=== PATIENT | female | born 1995 | race American Indian/Alaskan Native ===

== ENCOUNTER 2016-12-07 04:52 | Emergency (ER) | payer MEDICAID, OTHER ==
[2016-12-07 04:59] VITALS: BP 125/86
[2016-12-07] MEDS ORDERED: Famotidine 20 MG Tab PO ONE (05:15)
[2016-12-07] MEDS ORDERED: diphenhydrAMINE 25 MG Tab PO ONE (05:15)
--- NOTE | 2016-12-07 05:21 | EDM.PDOC ---
ED HPI Allergic Reaction - General Chief Complaint: Allergic Reaction Stated Complaint: BREAKING OUT IN HIVES Time Seen by Provider: 12/07/16 05:00 Source of Information: Reports: Patient History Limitations: Reports: No limitations - History of Present Illness INITIAL COMMENTS - FREE TEXT/NARRATIVE: rash since yesterday, started on arms, itchy progressing from fine to large hive area on inner thigh. Present on abdomen and back Now recently starting into hair. No changes in diet , soaps or lotions. No other sympotms. Has only tried hydrocortisone. remote change in laundry soap but has worn clothing prior with out response. Location, Skin: Reports: face, chest, abdomen, back, upper extremity, right, upper extremity, left, lower extremity, right, lower extremity, left Characteristics: Reports: maculopapular, fine, urticarial - Related Data Allergies/ADRs: Allergies Allergy/AdvReac Type Severity Reaction Status Date / Time No Known Allergies Allergy Verified 12/07/16 04:59 Home Meds: Home Meds . 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/Surgical History Social & Family History - Tobacco Use Smoking Status *Q: Never Smoker Second Hand Smoke Exposure: No - Alcohol Use Days Per Week of Alcohol Use: 0 - Recreational Drug Use Recreational Drug Use: No - Living Situation & Occupation Living situation: Reports: single, with family Occupation: student ED ROS ALLERGIC REACTION - Review of Systems Review Of Systems: ROS reveals no pertinent complaints other than HPI. ED EXAM GENERAL NO PERIP PULSE - Physical Exam Exam: See Below Exam Limited By: No limitations General Appearance: alert, no apparent distress Eye Exam: bilateral eye: EOMI Ears: normal external exam Nose: normal inspection Throat/Mouth: Normal inspection Head: atraumatic, normocephalic Neck: normal inspection Respiratory/Chest: no respiratory distress, lungs clear, normal breath sounds GI/Abdominal: normal bowel sounds, soft Extremities: normal inspection Neurological: alert, oriented, normal cognition Skin Exam: Warm, Dry, Intact, Rash (fine loki upper extremities, raised abdomen , neck and back confluent, mocular hives lower extremities. ) Lymphatic: no adenopathy Course - Vital Signs Last Recorded V/S: Last Vital Signs Temp 97.2 F 12/07/16 04:54 Pulse 80 12/07/16 04:54 Resp 18 12/07/16 04:54 BP 125/86 12/07/16 04:54 Pulse Ox 99 12/07/16 04:54 - Orders/Labs/Meds Meds: Medications Discontinued Medications Generic Name Dose Route Start Last Admin Trade Name Rocío PRN Reason Stop Dose Admin Diphenhydramine HCl 25 mg 12/07/16 05:15 12/07/16 05:22 Benadryl PO 12/07/16 05:16 25 mg ONETIME ONE Administration Famotidine 20 mg 12/07/16 05:15 12/07/16 05:22 Pepcid PO 12/07/16 05:16 20 mg ONETIME ONE Administration Departure - Departure Time of Disposition: 05:17 Disposition: Home, Self-Care 01 Condition: good Clinical Impression: Dermatitis Instructions: Contact Dermatitis, [id number] Forms: ED Department Discharge Additional Instructions: benadryl 25mg every 6 hours for 24 hours then as needed Pepcid 10mg twice daily for 2 days follow up urgently if any breathing or swallowing difficulty.
== END 2016-12-07 05:24 | disposition home or self-care (01) ==
LOC: DL.ED 04:52
DX: L30.9 Dermatitis, unspecified (principal)
CPT/HCPCS: 99283; A9270

== ENCOUNTER 2017-08-02 14:42 | Emergency (ER) | payer OTHER ==
[2017-08-02 15:33] VITALS: BP 117/66
--- NOTE | 2017-08-02 16:04 | EDM.PDOC ---
ED HPI GENERAL MEDICAL PROBLEM - General Chief Complaint: ENT Problem Stated Complaint: FEVER,CHILLS,SORE THROAT, [id number] Time Seen by Provider: 08/02/17 15:50 Source of Information: Reports: Patient History Limitations: Reports: No Limitations - History of Present Illness INITIAL COMMENTS - FREE TEXT/NARRATIVE: This 22 yo female patient reports to the ED for 2 issues for which she has been seen in the Clinic. The first issue is that the patient reports having pain in her vaginal area. The patient reports she has been checked for STD's, but they have not found anything. The second issue is soreness in her throat. The patient was seen in the clinic yesterday, tested negative for strep, but was not given anything for her throat. The patient reports she is here for a second opinion regarding her throat and vaginal pain. Onset: Gradual Duration: Constant Location: Reports: Neck, Pelvis Quality: Reports: Ache, Dull Severity: Moderate Improves with: Reports: None Worsens with: Reports: None Associated Symptoms: Reports: No Other Symptoms Throat Pain Score (Numeric/FACES): 4 - Related Data Allergies Allergy/AdvReac Type Severity Reaction Status Date / Time No Known Allergies Allergy Verified 08/02/17 15:30 Home Meds: Home Meds . 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 ED EXAM, GENERAL - Physical Exam Exam: See Below Exam Limited By: No Limitations General Appearance: Alert, WD/WN, Mild Distress Eye Exam: Bilateral Eye: EOMI, Normal Inspection, PERRL Ears: Normal External Exam, Normal Canal, Hearing Grossly Normal, Normal TMs Nose: Normal Inspection, Normal Mucosa, No Blood Throat/Mouth: Normal Inspection, Normal Lips, Normal Teeth, Normal Gums, Normal Voice, No Airway Compromise, Other (tonsils are erythematous) Head: Atraumatic, Normocephalic Neck: Normal Inspection, Supple, Non-Tender, Full Range of Motion Respiratory/Chest: No Respiratory Distress, Lungs Clear, Normal Breath Sounds, No Accessory Muscle Use, Chest Non-Tender Cardiovascular: Normal Peripheral Pulses, Regular Rate, Rhythm, No Edema, No Gallop, No JVD, No Murmur, No Rub GI/Abdominal: Normal Bowel Sounds, Soft, Non-Tender, No Organomegaly, No Distention, No Abnormal Bruit, No Mass (Female) Exam: Deferred Rectal (Female) Exam: Deferred Back Exam: Normal Inspection, Full Range of Motion, NT Extremities: Normal Inspection, Normal Range of Motion, Non-Tender, Normal Capillary Refill, No Pedal Edema Neurological: Alert, Oriented, CN II-XII Intact, Normal Cognition, Normal Gait, Normal Reflexes, No Motor/Sensory Deficits Psychiatric: Normal Affect, Normal Mood Skin Exam: Warm, Dry, Intact, Normal Color, No Rash Lymphatic: No Adenopathy Course - Vital Signs Last Recorded V/S: Last Vital Signs Temp 36.9 C 08/02/17 15:32 Pulse 80 08/02/17 15:32 Resp 18 08/02/17 15:32 BP 117/66 08/02/17 15:32 Pulse Ox 100 08/02/17 15:32 - Orders/Labs/Meds Labs: Laboratory Tests 08/02/17 08/02/17 Range/Units 15:45 15:45 Urine Color Yellow (YELLOW) Urine Appearance Turbid (CLEAR) Urine pH 7.5 (5.0-9.0) Ur Specific [place] 1.020 (1.005-1.030) Urine Protein Negative (NEGATIVE) Urine Glucose (UA) Negative (NEGATIVE) Urine Ketones Negative (NEGATIVE) Urine Occult Blood Negative (NEGATIVE) Urine Nitrite Negative (NEGATIVE) Urine Bilirubin Negative (NEGATIVE) Urine Urobilinogen 0.2 (0.2-1.0) mg/dL Ur Leukocyte Esterase Negative (NEGATIVE) Urine RBC 0-5 /HPF Urine WBC 0-5 (0-5/HPF) /HPF Ur Epithelial Cells Few /HPF Amorphous Sediment Many H (0/HPF) /HPF Urine Bacteria Rare (0-FEW/HPF) /HPF Urine Mucus Few H /LPF Urine HCG, Qual Negative Departure - Departure Time of Disposition: 16:32 Disposition: Home, Self-Care 01 Condition: Fair Clinical Impression: Vaginal pain, Sore throat (viral) - Discharge Information Instructions: Pelvic Pain, Female, [id number] Forms: ED Department Discharge Care Plan Goals: The patient was advised of the examination and lab results during the visit. The patient was encouraged to follow-up with her primary care facility for continued evaluation and management. If the patient has any additional symptoms or concerns, the patient should follow-up with her primary care facility or return to the emergency department.
== END 2017-08-02 16:45 | disposition home or self-care (01) ==
LOC: DL.ED 14:42
DX: J02.8 Acute pharyngitis due to other specified organisms (principal); B97.89 Other viral agents as the cause of diseases classified elsewhere; R10.2 Pelvic and perineal pain
CPT/HCPCS: 81001; 81025; 99283

== ENCOUNTER 2018-03-10 09:18 | Emergency (ER) | payer OTHER ==
[2018-03-10 09:43] VITALS: BP 112/75
[2018-03-10] MEDS ORDERED: Sodium Chloride 0.9% 1,000 ML IV ONE (09:57)
[2018-03-10 10:03] LABS: CHLORIDE,CL 105 mmol/L (101-111); SODIUM,NA 137 mmol/L (135-145)
[2018-03-10] MEDS ORDERED: Acetaminophen 325 MG Tab PO ONE (10:06)
--- NOTE | 2018-03-10 10:06 | EDM.PDOC ---
ED HPI GENERAL MEDICAL PROBLEM - General Chief Complaint: General Stated Complaint: TROUBLE TALKING, VISION PROBLEMS Time Seen by Provider: 03/10/18 09:45 Source of Information: Reports: Patient History Limitations: Reports: No Limitations - History of Present Illness INITIAL COMMENTS - FREE TEXT/NARRATIVE: This 23 yo female patient reports to the ED due to right arm numbness and vision difficulties. The patient reports that her numbness has resolved by the time of the evaluation, but the patient reports that she is starting to get a headache at this time. The patient reports that she has a history of migraine headaches. The patient reports that she may be a little dehydrated at this time as she has not been drinking her normal amounts of fluid. The patient reports that she has not taken anything for her headache today, but normally takes Tylenol. 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 Her last visit with Dr. Purcell was last week. Onset: Today Onset Date: 03/10/18 Onset Time: 09:00 Duration: Improving Location: Reports: Head (headache), Upper Extremity, Right (numbness), Other ( vision changes) Quality: Reports: Other Severity: Moderate Improves with: Reports: Other Worsens with: Reports: None Associated Symptoms: Reports: No Other Symptoms - Related Data Allergies Allergy/AdvReac Type Severity Reaction Status Date / Time No Known Allergies Allergy Verified 03/10/18 09:31 Home Meds: Home Meds Ferrous Sulfate 325 mg PO DAILY #30 tablet 01/15/18 [Rx] Vit W-Ca,Fe,FA(<1 mg) [ Vitamins] 1 tab PO DAILY 01/15/18 [ History] Past Medical History - Past Health History Medical/Surgical History: Denies Medical/Surgical History HEENT History: Reports: Other (See Below) Other HEENT History: RAD Cardiovascular History: Reports: None Respiratory History: Reports: Other (See Below) Other Respiratory History: RAD Gastrointestinal History: Reports: None Genitourinary History: Reports: None SIGNAL INSPECTOR History: Reports: Other OB/BYN History: 28 weeks; no known complications this due date Musculoskeletal History: Reports: None Neurological History: Reports: Migraines Other Neuro History: according to records on file was seen in 2013 in ER for similar symptoms Psychiatric History: Reports: Anxiety Endocrine/Metabolic History: Reports: None Hematologic History: Reports: None Immunologic History: Reports: None Oncologic (Cancer) History: Reports: None Dermatologic History: Reports: None - Infectious Disease History Infectious Disease History: Reports: None - Past Surgical History Head Surgeries/Procedures: Reports: None HEENT Surgical History: Reports: None Oncologic Surgical History: Reports: None Social & Family History - Family History Family Medical History: Noncontributory - Tobacco Use Smoking Status *Q: Never Smoker - Caffeine Use Caffeine Use: Reports: Soda - Recreational Drug Use Recreational Drug Use: No - Living Situation & Occupation Living situation: Reports: Single, with Family Occupation: Student ED ROS GENERAL - Review of Systems Review Of Systems: ROS reveals no pertinent complaints other than HPI. ED EXAM, GENERAL - Physical Exam Exam: See Below Exam Limited By: No Limitations General Appearance: Alert, WD/WN, Mild Distress Eye Exam: Bilateral Eye: EOMI, Normal Inspection, PERRL Ears: Normal External Exam, Normal Canal, Hearing Grossly Normal, Normal TMs Nose: Normal Inspection, Normal Mucosa, No Blood Throat/Mouth: Normal Inspection, Normal Lips, Normal Teeth, Normal Gums, Normal Oropharynx, Normal Voice, No Airway Compromise Head: Atraumatic, Normocephalic Neck: Normal Inspection, Supple, Non-Tender, Full Range of Motion Respiratory/Chest: No Respiratory Distress, Lungs Clear, Normal Breath Sounds, No Accessory Muscle Use, Chest Non-Tender Cardiovascular: Normal Peripheral Pulses, Regular Rate, Rhythm, No Edema, No Gallop, No JVD, No Murmur, No Rub GI/Abdominal: Normal Bowel Sounds, Soft, Non-Tender, No Organomegaly, No Distention, No Abnormal Bruit, No Mass (Female) Exam: Deferred Rectal (Female) Exam: Deferred Back Exam: Normal Inspection, Full Range of Motion, NT Extremities: Normal Inspection, Normal Range of Motion, Non-Tender, Normal Capillary Refill, No Pedal Edema Neurological: Alert, Oriented, CN II-XII Intact, Normal Cognition, Normal Gait, Normal Reflexes, No Motor/Sensory Deficits Psychiatric: Normal Affect, Normal Mood Skin Exam: Warm, Dry, Intact, Normal Color, No Rash Lymphatic: No Adenopathy Course - Vital Signs Last Recorded V/S: Last Vital Signs Temp 36.5 C 03/10/18 09:30 Pulse 100 03/10/18 09:30 Resp 18 03/10/18 09:30 BP 112/75 03/10/18 09:30 Pulse Ox 100 03/10/18 09:30 - Orders/Labs/Meds Orders: Active Orders 24 hr Category Date Time Status EKG 12 Lead [EKG Documentation Completion] [RC] STAT Care 03/10/18 09:32 Active Sodium Chloride 0.9% [Normal Saline] 1,000 ml Med 03/10/18 09:57 Active IV .BOLUS Medication Orders Sodium Chloride (Normal Saline) 1,000 mls @ 999 mls/hr IV .BOLUS ONE Stop: 03/10/18 10:57 Last Admin: 03/10/18 10:10 Dose: 999 mls/hr Labs: Laboratory Tests 03/10/18 03/10/18 Range/Units 09:35 09:35 WBC 7.4 (5.0-10.0) 10^3/uL RBC 3.82 L (4.2-5.4) 10^6/uL Hgb 11.1 L D (12.0-16.0) g/dL Hct 34.0 L (37.0-47.0) % MCV 89.0 (80-100) fL MCH 29.1 (27.0-34.0) pg MCHC 32.6 L (33.0-35.0) g/dL Plt Count 255 (150-450) 10^3/uL Neut % (Auto) 74.6 (42.2-75.2) % Lymph % (Auto) 14.4 L (20.5-50.1) % [place] % (Auto) 8.6 H (2-8) % Eos % (Auto) 2.3 (1.0-3.0) % Baso % (Auto) 0.1 (0.0-1.0) % Sodium 137 (135-145) mmol/L Potassium 3.3 L (3.6-5.0) mmol/L Chloride 105 (101-111) mmol/L Carbon Dioxide 23.0 (21.0-31.0) mmol/L Anion Gap 12.3 BUN 8 (7-18) mg/dL Creatinine 0.6 (0.6-1.3) mg/dL Est Cr Clr Drug Dosing 116.32 mL/min Estimated GFR (MDRD) > 60 BUN/Creatinine Ratio 13.33 Glucose 85 (74-105) mg/dL Calcium 8.9 (8.4-10.2) mg/dl Total Bilirubin 0.6 (0.2-1.0) mg/dL AST 23 (10-42) IU/L ALT 18 (10-60) IU/L Alkaline Phosphatase 84 (42-121) IU/L Troponin I < 0.02 (0.00-0.02) ng/ml Total Protein 6.9 (6.7-8.2) g/dl Albumin 3.2 (3.2-5.5) g/dl Globulin 3.7 Albumin/Globulin Ratio 0.86 Meds: Medications Generic Name Dose Route Start Last Admin Trade Name Freq PRN Reason Stop Dose Admin Sodium Chloride 1,000 mls @ 999 mls/hr 03/10/18 09:57 03/10/18 10:10 Normal Saline IV 03/10/18 10:57 999 mls/hr .BOLUS ONE Administration Discontinued Medications Generic Name Dose Route Start Last Admin Trade Name Freq PRN Reason Stop Dose Admin Acetaminophen 650 mg 03/10/18 10:06 03/10/18 10:10 Tylenol PO 03/10/18 10:07 650 mg NOW ONE Administration Departure - Departure Time of Disposition: 10:45 Disposition: Home, Self-Care 01 Condition: Fair Clinical Impression: Dehydration during Headache Qualifiers: Headache type: tension-type Headache chronicity pattern: acute headache Intractability: not intractable Qualified Code(s): G44.209 - Tension-type headache, unspecified, not intractable Qualifiers: Weeks of gestation: 26 weeks Qualified Code(s): Z3A.26 - 26 weeks gestation of - Discharge Information Instructions: Third Trimester of , [id number] Forms: ED Department Discharge Care Plan Goals: The patient was advised of the examination and lab results during the visit. The patient was given a liter of IV fluids and an oral dose of Tylenol while in the ED. If the patient has any additional symptoms or concerns, the patient should follow-up with her primary care facility or with her SIGNAL INSPECTOR. - My Orders Last 24 Hours: My Active Orders 03/10/18 09:32 EKG 12 Lead [EKG Documentation Completion] [RC] STAT 03/10/18 09:57 Sodium Chloride 0.9% [Normal Saline] 1,000 ml IV .BOLUS - Assessment/Plan Last 24 Hours: My Active Orders 03/10/18 09:32 EKG 12 Lead [EKG Documentation Completion] [RC] STAT 03/10/18 09:57 Sodium Chloride 0.9% [Normal Saline] 1,000 ml IV .BOLUS
--- NOTE | 2018-03-14 12:49 | EKG ---
03/10/2018 - SHRUTHI JENKINS - FINDINGS: This 12-lead EKG shows a normal sinus rhythm with a ventricular rate of 95. Normal axis and intervals. No acute ST-segment or T-wave changes. [facility] /[id number]
== END 2018-03-10 11:07 | disposition home or self-care (01) ==
LOC: DL.ED 09:18
DX: O99.282 Endocrine, nutritional and metabolic diseases complicating pregnancy, second trimester (principal); E86.0 Dehydration; O99.352 Diseases of the nervous system complicating pregnancy, second trimester; G44.209 Tension-type headache, unspecified, not intractable; Z3A.28 28 weeks gestation of pregnancy
CPT/HCPCS: 36415; 80053; 84484; 85025; 93005; 96360; 99284; A9270; J7030

== ENCOUNTER 2018-05-12 06:09 | Inpatient (IN) | payer MEDICAID, OTHER ==
[~2018-05-12 06:09] MED LIST: Acetaminophen 325 MG Tab PO PRN; Acetaminophen/oxyCODONE 325-5 MG Tab PO PRN; Carboprost Tromethamine 250 MCG/1 ML Amp IM ONE; Citric Acid/Sodium Citrate Solution 30 ML Cup PO ONE; Ketorolac 30 MG/ML SDV IVPUSH SCH; Methylergonovine 0.2 MG/1 ML Amp IM PRN; Misoprostol 400 MCG (4 X 100 MCG TAB) RECTAL PRN; Naloxone 2 MG/2 ML Syringe IVPUSH PRN; Ondansetron 4 MG/2 ML SDV IV PRN; Oxytocin/Normal Saline 30 UNIT/500 ML BAG IV SCH; Tranexamic Acid 1,000 MG in Sodium Chloride 0.9% 100 ML IV PRN; ceFAZolin 2 GM in Premix Bag 1 BAG IV ONE; diphenhydrAMINE 50 MG/ML SDV IVPUSH PRN; ePHEDrine 50 MG/ML SDV IVPUSH PRN
[2018-05-12] MEDS: Lactated Ringers 1,000 ML IV SCH ×4 (06:30→22:45)
[2018-05-12] MEDS ORDERED: Oxytocin/Normal Saline 60 UNIT/1,000 ML BAG ONE (06:56)
[2018-05-12] MEDS ORDERED: Citric Acid/Sodium Citrate Solution 30 ML Cup ONE (07:34)
[2018-05-12] MEDS ORDERED: Promethazine 25 MG/ML SDV IM ONE (10:32)
[2018-05-12] MEDS ORDERED: Ketorolac 30 MG/ML SDV IVPUSH ONE (10:47)
[2018-05-12] MEDS ORDERED: Morphine PF 1 MG/ML Amp ITHECAL ONE (10:47)
[2018-05-12] MEDS ORDERED: Bupivacaine 0.75%/D5W 2 ML Amp INJECT ONE (10:47)
[2018-05-12] MEDS ORDERED: Oxytocin/Normal Saline 30 UNIT/500 ML BAG IV ONE (11:28)
--- NOTE | 2018-05-12 11:28 | OR ---
DATE: 05/12/2018 PREOPERATIVE DIAGNOSES: 1. Intrauterine at 37 and 1/7 weeks, confirmed with 6 and 3/7-week ultrasound. 2. Intrahepatic cholestasis of . 3. Previous section x1, requests repeat low transverse section. 4. Anemia of with hemoglobin of 10.5 upon admission. 5. Group B Streptococcus negative. 6. Bacterial vaginosis, treated earlier in the . 7. History of reactive airway disease. Rare albuterol use in the distant past. 8. G2, P1-0-0-1. POSTOPERATIVE DIAGNOSES: 1. Intrauterine at 37 and 1/7 weeks, confirmed with 6 and 3/7-week ultrasound, delivered. 2. Intrahepatic cholestasis of . 3. Previous section x1, requests repeat low transverse section. 4. Anemia of with hemoglobin of 10.5 upon admission. 5. Group B Streptococcus negative. 6. Bacterial vaginosis, treated earlier in the . 7. History of reactive airway disease. Rare albuterol use in the distant past. 8. G2, P1-0-0-1. PROCEDURES PERFORMED: Nonstress test, followed by repeat low transverse section. [employer] PRO[employer]S SUPERVISOR: Elizabeth Ballard MD. ANESTHESIA: Spinal. ESTIMATED BLOOD LOSS: 800 mL. INTRAVENOUS FLUIDS: 600 mL. URINE OUTPUT: 300 mL and clear yellow. START: 8:00 UTERINE INCISION: 8:02 DELIVERY: 8:03 STOP: 8:17 FINDINGS: Male. scores of 7 and 9. 7 pounds 13 ounces DESCRIPTION OF PROCEDURE IN DETAIL: After proper consent was obtained, the patient was brought to the operating room where spinal anesthetic was administered. A Hook was placed in preop under sterile conditions. Abdomen was prepped and draped in normal sterile fashion with the patient placed in supine position with a left lateral tilt. A skin incision was made over the lower abdomen in a transverse Pfannenstiel- type fashion over previous scar. This was carried down the fascia and scored in midline. Subcutaneous tissue was raked laterally by Esparza retractor. The fascial incision was extended in a transverse fashion using curved Hays's. Meredith clamps x2 were used to grasp the superior aspect of the fascia, and the rectus muscles were dissected from the fascia using a sharp and blunt technique. In a similar fashion, Meredith clamps x2 were used to grasp the inferior portion of the incision, and rectus pyramidalis muscles were dissected from the fascia using a sharp and blunt technique. Rectus muscles were in the midline with a blunt technique. Abdominal cavity was entered with a blunt technique. Incision was extended superiorly and inferiorly with blunt technique. Alvarado O large retractor was then introduced and used. Vesicouterine peritoneum was identified and incised in a transverse fashion with Metzenbaum scissors. Bladder flap was made digitally. A curvilinear incision was made on the lower uterine segment at 0802 hours. Uterus was entered sharply. The uterine incision was extended in a transverse fashion using blunt technique. Bulging bag of water was then ruptured and clear fluid returned. vertex was then delivered through the incision followed by rest of the infant without difficulty. Mouth and nares were suctioned. Cord was doubly clamped and cut, and the was brought over to the team. Then, approximately 10 mL of cord blood was obtained for labs. Placenta was then delivered with gentle cord traction and fundal massage. Castro clamps were used to grasp the uterine incision. This was closed in a running locked fashion and tied at lateral margins with 1-0 Vicryl. First inspection of the uterine incision revealed hemostasis. Alvarado O retractor was then removed, and paracolic gutters were then cleared of all blood clots and debris with a lap sponge. Anterior cul-de-sac was irrigated copiously, and all blood clots and debris were removed. Second and final inspection of the uterine incision and anterior cul-de-sac revealed hemostasis. Rectus muscles were then reapproximated in midline with a [id number] stitch using 1-0 Vicryl. The subfascial tissues were found to be hemostatic, and the fascia was closed in a running fashion and tied at lateral margins with 0 looped PDS. Subcutaneous tissue was irrigated copiously. Hemostasis reassured. Skin was reapproximated with medium álvaro. Sterile Aquacel dressing was applied. Uterine fundus was firm, massaged at the conclusion of the case, -2 below umbilicus. No immediate complications were noted. Sponge, lap, and needle counts were correct. The patient received 2 g Ancef preoperatively, Pitocin per protocol, and will receive Toradol at the conclusion of the case for pain control. Mother and are currently stable at the time of dictation. MOD /[id number] MTDD
[2018-05-12] MEDS: Simethicone 80 MG Tab.Chew PO SCH ×5 (13:33→20:40)
[2018-05-12] MEDS: Prenatal Multivitamin with Calcium/Folic Acid/Iron Tab PO SCH ×2 (13:33→13:34)
[2018-05-12] MEDS: Ketorolac 30 MG/ML SDV IVPUSH SCH ×3 (14:55→20:41)
[2018-05-13] MEDS: Ketorolac 30 MG/ML SDV IVPUSH SCH (02:08)
[2018-05-13] MEDS: Acetaminophen/oxyCODONE 325-5 MG Tab PO PRN ×5 (06:02→23:51)
[2018-05-13] MEDS: Simethicone 80 MG Tab.Chew PO SCH ×5 (09:17→23:03)
[2018-05-13] MEDS: Docusate Sodium 100 MG Cap PO PRN ×2 (09:17→19:23)
[2018-05-13] MEDS: Prenatal Multivitamin with Calcium/Folic Acid/Iron Tab PO SCH (09:17)
--- NOTE | 2018-05-13 09:20 | OBOUT ---
DATE: 05/12/2018 TIME OF NST: 6:40 a.m. to 7:00 a.m. REASON FOR NST: 1. Intrauterine at 37 and 1/7 weeks, confirmed with 6 and 3/7-week ultrasound. 2. Intrahepatic cholestasis of . 3. Previous , requests repeat low transverse . 4. Anemia of . Hemoglobin pending. 5. Group B Streptococcus negative. 6. Bacterial vaginosis, treated. 7. History of reactive airway disease. Rare albuterol use. 8. 2, para 1-0-0-1. NST INTERPRETATION: During this time period, heart tone baseline is approximately 120 and there are at least two 15 x 15 beat per minute accelerations, making this strip reactive. It is also noted to be reassuring. Tocometer reveals four contractions, none felt by patient. ASSESSMENT: 1. Blood pressure 116/73, heart rate 83, temperature 97.5. Repeat blood pressure 118/80 and heart rate 61. 2. Nonstress test, reactive and reassuring. 3. Tocometer with contractions, none felt by patient. PLAN: Please see admit history and physical done through [employer]. Records were called for, reviewed, and supplemented by patient history in regard to this as well as review of systems reviewed. Please see H and P for further details done through [employer]. We will proceed to the OR as soon as crew is ready and available. [facility] /[id number]
[2018-05-13] MEDS: Ibuprofen 800 MG Tab PO PRN ×2 (10:09→19:23)
[2018-05-14] MEDS: Acetaminophen/oxyCODONE 325-5 MG Tab PO PRN ×2 (04:24→08:32)
[2018-05-14] MEDS: Ibuprofen 800 MG Tab PO PRN (04:25)
[2018-05-14] MEDS: Docusate Sodium 100 MG Cap PO PRN (08:08)
[2018-05-14] MEDS: Simethicone 80 MG Tab.Chew PO SCH (08:08)
[2018-05-14] MEDS: Prenatal Multivitamin with Calcium/Folic Acid/Iron Tab PO SCH (08:08)
[2018-05-14 09:51] VITALS: BP 116/78
--- NOTE | 2018-05-14 10:36 | PN ---
DATE: 05/13/2018 Postop day #1, status post repeat low transverse . SUBJECTIVE: The patient has been tolerating p.o.'s, has ambulated. Hook has just been removed. She is passing flatus. Pain is under control. She has been having some Benadryl for itching. OBJECTIVE: Vital signs: Temperature 98.7, heart rate 79, blood pressure 102/55, respiratory rate 16. Lungs: Clear to auscultation bilaterally. Heart: S1 and S2. Regular rate and rhythm. Pelvic: Firm uterus -1 below umbilicus. Aquacel dressing has minimal shadowing, trace but nothing saturating. SCDs and ABRAHAM hose are on. CBC will be drawn tomorrow. ASSESSMENT AND PLAN: Postoperative day #1, status post repeat low transverse C- section. Appears to be doing well at this point in time. We will continue to follow clinically and closely. Medications for itching will be used. The patient understands and agrees with the above treatment plan. [facility] /[id number]
--- NOTE | 2018-05-15 09:32 | DISCH ---
ADMIT DIAGNOSES: 1. Intrauterine at 37 and 1/7 weeks, confirmed with 6-1/2 week ultrasound. 2. Intrahepatic cholestasis of . 3. Previous section x1, requests repeat low transverse section. 4. Anemia of with hemoglobin 10.5 upon admission. 5. Group B Streptococcus negative. 6. Bacterial vaginosis, treated earlier in the . 7. History reactive air disease, rare albuterol use. 8. G2, P1-0-0-1. DISCHARGE DIAGNOSES: 1. Intrauterine at 37 and 1/7 weeks, confirmed with 6-1/2 week ultrasound, delivered. 2. Intrahepatic cholestasis of . 3. Previous section x1, requests repeat low transverse section. 4. Anemia of with hemoglobin 10.5 upon admission. 5. Group B Streptococcus negative. 6. Bacterial vaginosis, treated earlier in the . 7. History reactive air disease, rare albuterol use. 8. G2, P1-0-0-1. 9. Anemia of acute blood loss, hemoglobin dropping down to 8.2. PROCEDURE PERFORMED: NST followed by repeat low transverse per Dr. Purcell. HISTORY OF PRESENT ILLNESS: Please see H and P. SUMMARY OF HOSPITAL COURSE: The patient was admitted on the above date with the above diagnoses and underwent a repeat low transverse with spinal anesthesia with an EBL of 800 mL, yielding a male, score 7 and 9, weighing 7 pounds 13 ounces (3550 g). The patient had ICP diagnosed prior to this. On postoperative day #1, please see progress note. Postoperative day #2, date of discharge, the patient was tolerating p.o., ambulating, urinating, passing flatus, and requesting discharge. PHYSICAL EXAMINATION: Vital Signs: Last set of vitals updated and listed in the chart. Temperature 98.5, heart rate 67, blood pressure 110/62, respiratory rate 16. Lungs: Clear to auscultation. Heart: S1 and S2. Regular rate and rhythm. Pelvic: Firm uterus -1 below umbilicus. Aquacel dressing does feel minimally spongy with shadowing noted. This will be removed and replaced today. No peripheral edema. No calf pain. White cell count 8.1, hemoglobin 8.2, platelets 202. CONDITION ON DISCHARGE COMPARED TO CONDITION ON ADMISSION: Improved. INSTRUCTIONS: 1. Diet as tolerated. 2. Activity: No lifting more than 20 pounds. No sit-ups, straining, and pelvic rest for the next 6 weeks with immediate return to fertility discussed with the patient. Reasons to return or go to the emergency room was discussed with the patient in detail including, but not limited to, temperature greater than 100.4, foul- smelling discharge, red hot tender breasts, increased vaginal bleeding, or increasing pain, drainage, or redness around the incision. DISCHARGE MEDICATIONS: 1. [id number] Tylenol or ibuprofen for pain. 2. Iron sulfate 325 b.i.d. x6 weeks. 3. vitamins x6 weeks. 4. Percocet 5/325 mg 1 to 2 q.6 hours p.r.n., #30, no refills. Discussed the use of this medication, unwanted side effects, as well as precautions with driving. FOLLOWUP: Follow up on 05/16/2018, for staple removal with her baby as well. I did discuss with her in the interim reasons to return or go to the emergency room in regard to her as well. The patient understands and agrees with the above treatment plan. [facility] /[id number]
== END 2018-05-14 11:00 | disposition home or self-care (01) | DRG 765 ==
LOC: DL.MS 06:09 → OBSVTOIN 08:03
PROVIDERS: ADMIT Family Medicine; ATTEND Family Medicine
PROC: 10D00Z1 Extraction of Products of Conception, Low, Open Approach (ICD-10-PCS; principal; 2018-05-12)
PROC: 4A0HX4Z Measurement of Products of Conception, Cardiac Electrical Activity, External Approach (ICD-10-PCS; 2018-05-12)
DX: O34.211 Maternal care for low transverse scar from previous cesarean delivery (principal); K83.1 Obstruction of bile duct; O26.62 Liver and biliary tract disorders in childbirth; Z37.0 Single live birth; Z3A.37 37 weeks gestation of pregnancy; O99.02 Anemia complicating childbirth; D64.9 Anemia, unspecified
CPT/HCPCS: 01961; 36415; 59025; 85027; 86850; 86900; 86901; A9270-GY; J0690; J1200; J1885; J2274; J2550; J2590; J7120

== ENCOUNTER 2020-01-30 11:49 | Emergency (ER) | payer BC, MEDICAID ==
[2020-01-30 11:55] VITALS: BP 112/66; PULSE 100
[2020-01-30] MEDS ORDERED: Bacitracin Oint 1 GM U/D Packet TOP ONE (12:03)
--- NOTE | 2020-01-30 12:06 | EDM.PDOC ---
ED HPI GENERAL MEDICAL PROBLEM - General Chief Complaint: Skin Complaint Stated Complaint: LACERATION ON RIGHT ARM Time Seen by Provider: 01/30/20 11:58 Source of Information: Reports: Patient History Limitations: Reports: No Limitations - History of Present Illness INITIAL COMMENTS - FREE TEXT/NARRATIVE: This 24 yo female patient reports to the ED with a laceration to her right wrist. The patient reports she cut her wrist last night while washing dishes. The bleeding was controlled by the time of presentation. Onset Date: 01/29/20 Duration: Improving Location: Reports: Upper Extremity, Right Quality: Reports: Other Severity: Mild Improves with: Reports: None Worsens with: Reports: None Context: Reports: Other Associated Symptoms: Reports: No Other Symptoms Right Hand Pain Score (Numeric/FACES): 6 - Related Data Allergies Allergy/AdvReac Type Severity Reaction Status Date / Time No Known Allergies Allergy Verified 01/30/20 11:55 Home Meds: Home Meds . 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; no known complications this due date Musculoskeletal History: Reports: None Neurological History: Reports: Migraines Other Neuro History: according to records on file was seen in 2013 in ER for similar symptoms Psychiatric History: Reports: Anxiety, Depression, Other (See Below) Other Psychiatric History: Post depression Endocrine/Metabolic History: Reports: None Hematologic History: Reports: Anemia Immunologic History: Reports: None Oncologic (Cancer) History: Reports: None Dermatologic History: Reports: None - Infectious Disease History Infectious Disease History: Reports: None - Past Surgical History Head Surgeries/Procedures: Reports: None HEENT Surgical History: Reports: None Female Surgical History: Reports: Section Neurological Surgical History: Reports: None Oncologic Surgical History: Reports: None Dermatological Surgical History: Reports: None Social & Family History - Family History Family Medical History: Noncontributory - Tobacco Use Smoking Status *Q: Never Smoker Second Hand Smoke Exposure: No - Caffeine Use Caffeine Use: Reports: None Other Caffeine Use: ONE PER DAY Caffeine Use Comment: 1-2 cans per day - Recreational Drug Use Recreational Drug Use: No - Living Situation & Occupation Living situation: Reports: Single, with Family Occupation: Student ED ROS GENERAL - Review of Systems Review Of Systems: Comprehensive ROS is negative, except as noted in HPI. ED EXAM, SKIN/RASH Exam: See Below Exam Limited By: No Limitations General Appearance: Alert, WD/WN, No Apparent Distress Eye Exam: Bilateral Eye: EOMI, Normal Inspection, PERRL Ears: Normal External Exam, Normal Canal, Hearing Grossly Normal, Normal TMs Nose: Normal Inspection, Normal Mucosa, No Blood Throat/Mouth: Normal Inspection, Normal Lips, Normal Teeth, Normal Gums, Normal Oropharynx, Normal Voice, No Airway Compromise Head: Atraumatic, Normocephalic Neck: Normal Inspection, Supple, Non-Tender, Full Range of Motion Respiratory/Chest: No Respiratory Distress, Lungs Clear, Normal Breath Sounds, No Accessory Muscle Use, Chest Non-Tender Cardiovascular: Normal Peripheral Pulses, Regular Rate, Rhythm, No Edema, No Gallop, No JVD, No Murmur, No Rub GI/Abdominal: Normal Bowel Sounds, Soft, Non-Tender, No Organomegaly, No Distention, No Abnormal Bruit, No Mass (Female) Exam: Deferred Rectal (Female) Exam: Deferred Back Exam: Normal Inspection, Full Range of Motion, NT Extremities: Normal Range of Motion, Non-Tender, No Pedal Edema, Normal Capillary Refill, Other (small laceration to the right wrist no current bleeding ) Neurological: Alert, Oriented, CN II-XII Intact, Normal Cognition, Normal Gait, Normal Reflexes, No Motor/Sensory Deficits Skin: Warm, Dry, Normal Color Location, Skin: Upper Extremity, Right Characteristics: Linear Associated features: No: Warmth, Tenderness, Swelling, Induration Course - Vital Signs Last Recorded V/S: Last Vital Signs Temp 36.7 C 01/30/20 11:52 Pulse 100 01/30/20 11:52 Resp 16 01/30/20 11:52 BP 112/66 01/30/20 11:52 Pulse Ox 95 01/30/20 11:52 - Orders/Labs/Meds Meds: Medications Discontinued Medications Generic Name Dose Route Start Last Admin Trade Name Freq PRN Reason Stop Dose Admin Bacitracin 1 dose 05/16/20 12:03 Bacitracin Oint 1 Gm TOP 01/30/20 12:04 ONETIME ONE Departure - Departure Time of Disposition: 12:03 Disposition: Home, Self-Care 01 Condition: Fair Clinical Impression: Laceration of right wrist Qualifiers: Encounter type: initial encounter Qualified Code(s): S61.511A - Laceration without foreign body of right wrist, initial encounter - Discharge Information *PRESCRIPTION DRUG MONITORING PROGRAM REVIEWED*: Not Applicable *COPY OF PRESCRIPTION DRUG MONITORING REPORT IN PATIENT RON: Not Applicable Instructions: Laceration Care, Adult, [id number] Forms: ED Department Discharge Care Plan Goals: The patient was advised of the examination results during the visit. The wound was cleaned while in the ED and dressed with an adhesive bandage and an antibiotic ointment. The patient was encouraged to keep the area clean and dry over the next 24 hours then keep it covered. If the patient has any additional symptoms or concerns, the patient should either return to the emergency department or visit her primary care facility. Sepsis Event Note - Evaluation Sepsis Screening Result: No Definite Risk - Focused Exam Vital Signs: Vital Signs Temp Pulse Resp BP Pulse Ox 01/30/20 11:52 36.7 C 100 16 112/66 95 Date Exam was Performed: 01/30/20 Time Exam was Performed: 12:06
== END 2020-01-30 12:09 | disposition home or self-care (01) ==
LOC: DL.ED 11:49
DX: S61.511A Laceration without foreign body of right wrist, initial encounter (principal); W26.8XXA Contact with other sharp object(s), not elsewhere classified, initial encounter
CPT/HCPCS: 99282

== ENCOUNTER 2020-02-27 19:58 | Emergency (ER) | payer BC ==
[2020-02-27 20:42] VITALS: BP 133/70; PULSE 120
--- NOTE | 2020-02-27 21:30 | EDM.PDOC ---
ED HPI GENERAL MEDICAL PROBLEM - General Chief Complaint: ENT Problem Stated Complaint: THROAT HURTS, FEELS HOT - FEVER Time Seen by Provider: 02/27/20 20:30 Source of Information: Reports: Patient History Limitations: Reports: No Limitations - History of Present Illness INITIAL COMMENTS - FREE TEXT/NARRATIVE: ED with c/o chills fever sore throat and body aches since this am. No vomiting, Able to take liquids, Throat Pain Score (Numeric/FACES): 9 - Related Data Allergies Allergy/AdvReac Type Severity Reaction Status Date / Time No Known Allergies Allergy Verified 02/27/20 20:42 Home Meds: Home Meds . 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 Musculoskeletal History: Reports: None Neurological History: Reports: Migraines Other Neuro History: according to records on file was seen in 2013 in ER for similar symptoms Psychiatric History: Reports: Anxiety, Depression, Other (See Below) Other Psychiatric History: Post depression. 02-27-20 Pt denied any depression. Endocrine/Metabolic History: Reports: None Hematologic History: Reports: Anemia Immunologic History: Reports: None Oncologic (Cancer) History: Reports: None Dermatologic History: Reports: None - Infectious Disease History Infectious Disease History: Reports: None - Past Surgical History Head Surgeries/Procedures: Reports: None HEENT Surgical History: Reports: None Respiratory Surgical History: Reports: None Female Surgical History: Reports: Section Neurological Surgical History: Reports: None Oncologic Surgical History: Reports: None Dermatological Surgical History: Reports: None Social & Family History - Family History Family Medical History: Noncontributory - Tobacco Use Smoking Status *Q: Never Smoker Second Hand Smoke Exposure: No - Caffeine Use Caffeine Use: Reports: Soda Other Caffeine Use: ONE PER DAY Caffeine Use Comment: 1-2 cans per day - Recreational Drug Use Recreational Drug Use: No - Living Situation & Occupation Living situation: Reports: Single, with Family Occupation: Student ED ROS ENT - Review of Systems Review Of Systems: Comprehensive ROS is negative, except as noted in HPI. ED EXAM, ENT - Physical Exam Exam: See Below Exam Limited By: No Limitations General Appearance: Alert, Mild Distress Eye Exam: Bilateral Eye: EOMI Ears: Normal External Exam, Normal TMs Nose: Normal Inspection Mouth/Throat: Tonsillar Erythema, Tonsillar Exudates, Tonsillar Swelling. No: Uvular Deviation Head: Atraumatic, Normocephalic Neck: Normal Inspection, Full Range of Motion, Lymphadenopathy (L), Lymphadenopathy (R) Respiratory/Chest: Lungs Clear, Normal Breath Sounds Cardiovascular: Regular Rate, Rhythm GI/Abdominal: Soft, Non-Tender Neurological: Alert, Oriented Psychiatric: Normal Affect, Normal Mood Skin: Warm, Dry, Intact Course - Vital Signs Last Recorded V/S: Last Vital Signs Temp 99.4 F 02/27/20 20:30 Pulse 120 H 02/27/20 20:30 Resp 18 02/27/20 20:30 BP 133/70 02/27/20 20:30 Pulse Ox 98 02/27/20 20:30 - Orders/Labs/Meds Meds: Medications Discontinued Medications Generic Name Dose Route Start Last Admin Trade Name Freq PRN Reason Stop Dose Admin Amoxicillin 1,000 mg 02/27/20 21:46 02/27/20 21:50 Amoxil PO 02/27/20 21:47 1,000 mg ONETIME ONE Administration Departure - Departure Time of Disposition: 21:28 Disposition: Home, Self-Care 01 Condition: Good Clinical Impression: Strep sore throat - Discharge Information *PRESCRIPTION DRUG MONITORING PROGRAM REVIEWED*: No *COPY OF PRESCRIPTION DRUG MONITORING REPORT IN PATIENT RON: No Instructions: Strep Throat, Adult, [id number] Referrals: Derrick Purcell MD [Primary Care Provider] - Forms: ED Department Discharge Additional Instructions: increase fluids alternate tylenol and ibuprofenevery 4 hours amoxicillin 500mg one three times daily x 10 days follow up if symptoms worsen Sepsis Event Note (ED) - Evaluation Sepsis Screening Result: No Definite Risk
[2020-02-27] MEDS ORDERED: Amoxicillin 500 MG Cap PO ONE (21:46)
== END 2020-02-27 21:50 | disposition home or self-care (01) ==
LOC: DL.ED 19:58
DX: J02.0 Streptococcal pharyngitis (principal)
CPT/HCPCS: 87430; 99283; A9270

== ENCOUNTER → 2023-01-14 | Day surgery (SDC) | payer OTHER, MEDICAID ==
[~2023-01-14] MED LIST changes: -Acetaminophen 325 MG Tab PO PRN; -Acetaminophen/oxyCODONE 325-5 MG Tab PO PRN; -Carboprost Tromethamine 250 MCG/1 ML Amp IM ONE; -Citric Acid/Sodium Citrate Solution 30 ML Cup PO ONE; +Dextrose 5%-0.45% NaCl 1,000 ML IV SCH; -Ketorolac 30 MG/ML SDV IVPUSH SCH; -Methylergonovine 0.2 MG/1 ML Amp IM PRN; +Midazolam 1 MG/ML 2 ML SDV IV ONE; +Midazolam 1 MG/ML 2 ML SDV ONE; -Misoprostol 400 MCG (4 X 100 MCG TAB) RECTAL PRN; -Naloxone 2 MG/2 ML Syringe IVPUSH PRN; -Ondansetron 4 MG/2 ML SDV IV PRN; -Oxytocin/Normal Saline 30 UNIT/500 ML BAG IV SCH; +Sodium Chloride 0.9% 10 ML Syringe FLUSH PRN; +Sodium Chloride 0.9% 10 ML Syringe FLUSH SCH; -Tranexamic Acid 1,000 MG in Sodium Chloride 0.9% 100 ML IV PRN; -ceFAZolin 2 GM in Premix Bag 1 BAG IV ONE; -diphenhydrAMINE 50 MG/ML SDV IVPUSH PRN; -ePHEDrine 50 MG/ML SDV IVPUSH PRN; +fentaNYL 100 MCG/2 ML SDV IV ONE; +fentaNYL 100 MCG/2 ML SDV ONE
[2023-01-14 09:46] VITALS: BP 116/58; PULSE 60
== END | disposition home or self-care (01) ==
LOC: MERGE 06:43 → DL.ENDO 06:43
PROVIDERS: ATTEND Internal Medicine Gastroenterology
DX: K59.00 Constipation, unspecified (principal); K62.9 Disease of anus and rectum, unspecified; R10.30 Lower abdominal pain, unspecified; E66.09 Other obesity due to excess calories; Z98.51 Tubal ligation status; Z87.59 Personal history of other complications of pregnancy, childbirth and the puerperium; Z90.89 Acquired absence of other organs; Z68.29 Body mass index [BMI] 29.0-29.9, adult
CPT/HCPCS: 45378; J2250; J3010; J7042

== ENCOUNTER 2023-12-05 21:35 | Emergency (ER) | payer MEDICAID, OTHER ==
[2023-12-05 21:48] LABS: APPEARANCE,URINE CLEAR (CLEAR); BILIRUBIN,URINE SMALL (NEGATIVE); GLUCOSE,URINE 250 (NEGATIVE); KETONES,URINE 15 (NEGATIVE); LEUKOCYTE ESTERASE,URINE LARGE (NEGATIVE); NITRITE,URINE POSITIVE (NEGATIVE); OCCULT BLOOD,URINE NEGATIVE (NEGATIVE); PROTEIN,URINE 100 (NEGATIVE); UROBILINOGEN,URINE >=8.0 mg/dL (0.2-1.0)
[2023-12-05 21:49] LABS: COLOR,URINE ORANGE (YELLOW)
[2023-12-05 22:08] LABS: RBC,URINE 0-5 /HPF (0-5)
[2023-12-05 22:10] LABS: BACTERIA,URINE MODERATE /HPF (0-FEW/HPF); EPITHELIAL CELLS,URINE MODERATE /HPF (NOT SEEN)
[2023-12-05 22:11] LABS: MUCUS,URINE MODERATE /LPF (NOT SEEN)
[2023-12-05 22:14] VITALS: BP 131/88; PULSE 69
[2023-12-05] MEDS: Cephalexin 500 MG Cap PO ONE (22:40)
[2023-12-05] MEDS: Phenazopyridine 95 MG Tab PO ONE (22:40)
== END 2023-12-05 22:41 | disposition home or self-care (01) ==
LOC: DL.ED 21:35
DX: N39.0 Urinary tract infection, site not specified (principal); E66.9 Obesity, unspecified; Z86.16 Personal history of COVID-19; Z79.899 Other long term (current) drug therapy; Z68.45 Body mass index [BMI] 70 or greater, adult
CPT/HCPCS: 81001; 81025; 87086; 99283; 99284; A9270

== ENCOUNTER 2024-10-27 11:35 | Emergency (ER) | payer BC, OTHER ==
[2024-10-27 12:18] LABS: APPEARANCE,URINE CLEAR (CLEAR); BILIRUBIN,URINE NEGATIVE (NEGATIVE); COLOR,URINE YELLOW (YELLOW); GLUCOSE,URINE NEGATIVE (NEGATIVE); KETONES,URINE NEGATIVE (NEGATIVE); LEUKOCYTE ESTERASE,URINE NEGATIVE (NEGATIVE); NITRITE,URINE NEGATIVE (NEGATIVE); OCCULT BLOOD,URINE NEGATIVE (NEGATIVE); PH,URINE 6.5 (5.0-9.0); PROTEIN,URINE NEGATIVE (NEGATIVE); UROBILINOGEN,URINE 0.2 mg/dL (0.2-1.0)
[2024-10-27 12:18] LABS: HEMATOCRIT 42.7 % (37.0-47.0); HEMOGLOBIN 13.9 g/dL (12.0-16.0); MEAN CORPUSCULAR HEMOGLOBIN 29.5 pg (27.0-34.0); MEAN CORPUSCULAR HGB CONC 32.6 g/dL (33.0-35.0); MEAN CORPUSCULAR VOLUME 90.7 fL (80-100); PLATELET COUNT,PLT 320 10^3/uL (150-450); RED BLOOD CELL COUNT 4.71 10^6/uL (4.2-5.4); WHITE BLOOD CELL COUNT,WBC 7.9 10^3/uL (5.0-10.0)
[2024-10-27 12:20] LABS: EOSINOPHILS PERCENT AUTO 1.9 % (1.0-3.0); LYMPHOCYTES PERCENT AUTO 68.1 % (20.5-50.1); MONOCYTES PERCENT AUTO 10.1 % (2-8); NEUTROPHILS PERCENT AUTO 19.4 % (42.2-75.2)
[2024-10-27 12:21] LABS: BASOPHILS PERCENT AUTO 0.5 % (0.0-1.0)
[2024-10-27] MEDS: Acetaminophen 325 MG Tab PO ONE (12:31)
[2024-10-27] MEDS: Iopamidol 612 MG/ML 100 ML Bottle IVPUSH ONE (12:39)
[2024-10-27 12:40] LABS: EOSINOPHILS PERCENT MAN 2 % (1-3); INR 0.9 (0.9-1.2); LYMPHOCYTES % ATYPICAL MANUAL 11 %; LYMPHOCYTES PERCENT MAN 55 % (20-50); MONOCYTES PERCENT MAN 10 % (2-8); PROTHROMBIN TIME 9.9 SEC (9.0-12.0); SEG NEUTROPHILS PERCENT MAN 22 % (42-75)
[2024-10-27 12:41] LABS: A/G RATIO 0.9; ALANINE AMINOTRANSFERASE,ALT 219 U/L (14-59); ALBUMIN 3.8 g/dL (3.4-5.0); ALKALINE PHOSPHATASE 206 U/L (46-116); ASPARTATE AMNIOTRANSFERASE,AST 62 U/L (15-37); BILIRUBIN TOTAL 0.8 mg/dL (0.2-1.0); BLOOD UREA NITROGEN,BUN 9 mg/dL (7-18); BUN/CREATININE RATIO 11.8 (No establ ref range); CREATININE 0.76 mg/dL (0.55-1.02); EST CRCL DRUG DOSING (CG) 87.16 mL/min; GLUCOSE RANDOM 86 mg/dL (70-99); PROTEIN TOTAL,TP 8.1 g/dL (6.4-8.2)
[2024-10-27 12:45] LABS: ANION GAP 11.7 mEq/L (7-13); CARBON DIOXIDE,CO2 27 mmol/L (21-32); CHLORIDE,CL 103 mmol/L (98-107); ESTIMATED GFR 109 mL/min (>=60); POTASSIUM,K 3.7 mmol/L (3.5-5.1); SODIUM,NA 138 mmol/L (136-145)
[2024-10-27 12:48] VITALS: BP 129/78; PULSE 84
[2024-10-27] MEDS: Lactated Ringers 1,000 ML IV SCH (12:54)
[2024-10-27] MEDS: SUMAtriptan 6 MG/0.5 ML SDV SUBCUT ONE (13:24)
== END 2024-10-27 14:44 | disposition home or self-care (01) ==
LOC: DL.ED 11:35
DX: G43.909 Migraine, unspecified, not intractable, without status migrainosus (principal); E86.0 Dehydration; R94.5 Abnormal results of liver function studies; E66.9 Obesity, unspecified; Z68.32 Body mass index [BMI] 32.0-32.9, adult; Z86.16 Personal history of COVID-19; Z79.899 Other long term (current) drug therapy
CPT/HCPCS: 36415; 70450; 70496; 70498; 80053; 81003; 83735; 84484; 85025; 85610; 93005; 96360; 96372; 99284; A9270; J3030; J7120; Q9967; 93010